=== PATIENT | female | born 1950 | race Caucasian/White ===

== ENCOUNTER 2017-12-14 13:04 | Emergency (ER) | payer OTHER ==
[~2017-12-14] VITALS: Ht 160 cm; Wt 76.3 kg
[2017-12-14 14:43] LABS: HEMATOCRIT 40.1 % (36.0-46.0); HEMOGLOBIN 13.8 G/DL (11.9-15.5); MCHC 34.4 G/DL (30.0-36.0); MCV 90.1 FL (83-99); PLATELET COUNT 242 K/uL (156-360); RBC DIS.WIDTH-CV 12.3 % (11.8-14.6); RBC DIS.WIDTH-SD 40.9 % (39-53); RED BLOOD COUNT 4.45 M/uL (3.80-5.20); WHITE BLOOD COUNT 11.2 K/uL (4.1-10.2)
[2017-12-14 14:52] LABS: ALBUMIN 4.2 g/dL (3.2-4.8); CHLORIDE 104 mEq/L (99-109); POTASSIUM 4.2 mEq/L (3.7-5.4); SODIUM 137 mEq/L (136-147)
[2017-12-14 14:53] LABS: MAGNESIUM 2.3 mg/dL (1.3-2.7)
[2017-12-14 14:54] LABS: GLUCOSE 106 mg/dL (70-99); TOTAL PROTEIN 6.9 g/dL (6.4-8.3)
[2017-12-14 14:56] LABS: TOTAL BILIRUBIN 0.4 mg/dL (0.0-1.0)
[2017-12-14 14:58] LABS: ALKALINE PHOSPHATASE 73 IU/L (3-129); CREATININE 1.1 mg/dL (0.6-1.3); GFR ESTIMATE (CALCULATED) 52 mL/min/
[2017-12-14 14:59] LABS: UREA NITROGEN (BUN) 23 mg/dL (9-23)
[2017-12-14 15:00] LABS: AST (GOT) 22 IU/L (2-34)
[2017-12-14 15:01] LABS: ALT (GPT) 16 IU/L (3-49)
[2017-12-14 15:04] LABS: TROP-I INTERPRETATION NEGATIVE; TROPONIN-I < 0.01 ng/mL (0.0-0.30)
[2017-12-14 16:36] VITALS: BP 134/75
== END 2017-12-14 16:37 | disposition home or self-care (01) ==
LOC: EME 13:04
PROVIDERS: Emergency Medicine
DX: T67.5XXA Heat exhaustion, unspecified, initial encounter (principal); R55 Syncope and collapse; X30.XXXA Exposure to excessive natural heat, initial encounter; E78.5 Hyperlipidemia, unspecified; E03.9 Hypothyroidism, unspecified; Z88.5 Allergy status to narcotic agent
CPT/HCPCS: 71046; 80053; 83735; 84484; 85027; 93005; 99281; 99285; J7030